=== PATIENT | male | born 1970 | race Hispanic/Latino ===

== ENCOUNTER → 2018-03-26 | Day surgery (SDC) | payer OTHER ==
[~2018-03-26] MED LIST: CEFAZOLIN SOD 1 GM VIAL ONE; DEXAMETHASONE SOD PHOS INJ 4 MG/ML VIAL ONE; EPINEPHRINE HCL INJ 1 MG/ML AMP ONE; FENTANYL CITRATE/PF 100MCG/2 ML INJ ONE; KETAMINE HCL INJ 50 MG/ML 10 ML VIAL ONE; LIDOCAINE 2% /EPINEPHRINE 20 ML SDV INJ ONE; MIDAZOLAM HCL 2 MG/2 ML VIAL ONE; ONDANSETRON HCL INJ 2 MG/ML VIAL ONE; PROPOFOL IV EMULSION 10 MG/ML 50 ML VIAL ONE; ROPIVACAINE 0.5% 5 MG/ML 30 ML SDV ONE
--- NOTE | 2018-03-27 10:37 | Operative Report ---
DATE OF PROCEDURE: March 26, 2018 HULL LINE CREW MEMBER: Eugene Monteiro PA-C The patient was brought to the operating room for induction of anesthesia. Throughout this case, my PA's assistance was necessary for retraction of soft tissue and positioning of the extremity. This allows for efficient and technically successful execution of the operation and is considered medically necessary. PREOPERATIVE DIAGNOSIS: Right shoulder rotator cuff tear with secondary labral tear. POSTOPERATIVE DIAGNOSIS: Right shoulder rotator cuff tear with secondary labral tear. PROCEDURES 1. Right shoulder arthroscopy. 2. Subacromial decompression. 3. Rotator cuff repair. 4. Labral repair. INDICATIONS: The patient is a 47-year-old active gentleman who has right shoulder pain. 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 He injured his shoulder about 5 months ago. Since that time, he has had mechanical pain and weakness. Clinic exam and MRI are consistent with a rotator cuff tear and a labral tear. The findings and options have been discussed. The patient would like to proceed with more aggressive intervention. DESCRIPTION OF PROCEDURE: The patient was brought to the operating room and placed under general anesthetic. He received a regional block and prophylactic antibiotics in the holding area. He was positioned in the beach chair position on the shoulder table. His right upper extremity was prepped and draped in a sterile manner. A preoperative time out was performed. A standard posterior arthroscopy portal was established. The shoulder was insufflated with sterile saline and systematically inspected. As suspected, there was a tear of the superior labrum and the supraspinatus. A lateral working portal was established. A probe was introduced into the shoulder joint. This confirmed the findings. The glenohumeral surfaces were otherwise well preserved. A shaver was introduced into the shoulder joint through the rotator cuff tear. The superior supraglenoid tubercle was gently decorticated. An Arthrex bioabsorbable labral repair system was used to repair the labrum down to bleeding cancellous bone with 2 suture anchors. The repair was probed and noted to be hook stable. The articular surface of the torn rotator cuff was gently debrided back to healthy tissue with a mechanical shaver. The scope was then placed into the subacromial space. The remainder of the bursal surface of the frayed rotator cuff was debrided back to healthy tissue. The greater tuberosity was gently decorticated. An Arthrex speed bridge double row construct was used to repair the supraspinatus down to bleeding cancellous bone. This was photographed. Windlace Machine Operator holes were placed at the articular margin. Fiber tape stitches were passed through the rotator cuff. Secondary anchors were placed in the superior lateral humeral cortex. The repair was in an anterior to posterior and posterior to anterior fashion. Excellent fixation was felt to be obtained. Of note, a gentle bony subacromial decompression was performed for better visualization in the subacromial space. This was performed before the repair. The arthroscopic instruments were then removed. The portal incisions were closed with nylon stitches. A sterile bandage and an ultra sling were applied. The patient was extubated and transported to the recovery room in stable condition. Job#: [id number] LAMINE
== END | disposition home or self-care (01) ==
LOC: OR 08:20
PROVIDERS: ATTEND Specialist
DX: S46.011A Strain of muscle(s) and tendon(s) of the rotator cuff of right shoulder, initial encounter (principal); S43.491A Other sprain of right shoulder joint, initial encounter; X50.3XXA Overexertion from repetitive movements, initial encounter; Y93.73 Activity, racquet and hand sports; Y92.213 High school as the place of occurrence of the external cause; Y99.0 Civilian activity done for income or pay; Z01.810 Encounter for preprocedural cardiovascular examination
CPT/HCPCS: 29826; 29827; 93005; C1713; J0171; J0690; J1100; J2001; J2250; J2405; J2795